=== PATIENT | female | born 1990 | race Caucasian/White ===

== ENCOUNTER 2017-09-19 09:30 | Day surgery (SDC) | payer MEDICAID, OTHER ==
--- NOTE | 2017-09-18 18:01 | PREOPHP ---
DATE OF ADMISSION: 09/19/2017 She is to be admitted for laparoscopic bilateral tubal ligation tomorrow, 09/19/2017. HISTORY OF PRESENT ILLNESS: This is a 26-year-old female, 4, para 3, who has requested ster ilization on the basis of multiparity. She has tried multiple different forms of contraception. Th e patient is now requesting a permanent procedure in the way of the tubal ligation. Alternatives, b enefits, risks, and possible complications were discussed at great length in the office as well as 1 % failure rate of this procedure. She was allowed to ask questions and all her questions were answe red to her satisfaction then she signed the appropriate surgical informed consent. PAST MEDICAL HISTORY: The patient denies any medical problems including cardiovascular disease, hyp ertension, diabetes, renal disease, liver disease, thyroid disease, or neurological problems. ALLERGIES: NO KNOWN ALLERGIES. OBSTETRICAL HISTORY: The patient had 4 pregnancies with 3 deliveries. REVIEW OF SYSTEMS: A 12-point review of systems is noncontributory. FAMILY HISTORY: Noncontributory. PHYSICAL EXAMINATION: GENERAL: Well-developed and nourished, in no distress, alert and oriented x3. Height 5 feet 4 inch es and weight of 157 pounds. VITAL SIGNS: Showed the temperature to be 98, blood pressure 110/70, respirations are 16 per minute , pulse is 70 per minute regular. HEENT: Within normal limits. The pupils are PERRLA. NECK: Supple. The thyroid is nonpalpable. There is no lymphadenopathy. LUNGS: Clear to percussion and auscultation. HEART: Revealed normal sinus rhythm without a murmur. ABDOMEN: Soft without organomegalies or hernias. PELVIC: Normal external genitalia. Cervix is normal. Bimanual exam: The uterus small and firm. There are no adnexal masses present. EXTREMITIES: Within normal limits. NEUROLOGIC: Also normal. IMPRESSION: Multiparity. The patient desires sterilization, is to be admitted for laparoscopic sekou ateral tubal ligation tomorrow 09/19/2017. Dictated By: CHASE DOMINGUEZ/SIRENA Conf#: [id number] DID#: [id number]
[~2017-09-19] VITALS: Ht 162.6 cm; Wt 68.0 kg
[2017-09-19] VITALS (12 sets, daily range): BP systolic 101–130; BP diastolic 51–81; PULSE 68–83; RESP 15–24; Ht 162.6 cm; Wt 68.0 kg
[2017-09-19] MEDS ORDERED: PREN-19 PO (10:15)
[2017-09-19] MEDS ORDERED: BUPIVACAINE 0.5%/EPI (SDV) 30 ML INJ ONE (12:06)
[2017-09-19] MEDS ORDERED: PROPOFOL 20 ML ONE (12:35)
[2017-09-19] MEDS ORDERED: ONDANSETRON 4 MG INJ ONE (12:35)
[2017-09-19] MEDS ORDERED: ROPIVACAINE 0.5 % 30 ML VIAL ONE (12:35)
[2017-09-19] MEDS ORDERED: MIDAZOLAM 1 MG/ML 2 ML INJ ONE (12:35)
[2017-09-19] MEDS ORDERED: METOCLOPRAMIDE 10 MG INJ ONE (12:35)
[2017-09-19] MEDS ORDERED: KETOROLAC 30 MG INJ ONE (12:46)
[2017-09-19] MEDS ORDERED: ONDANSETRON 4 MG INJ IV PRN ×2 (13:30→14:00)
[2017-09-19] MEDS ORDERED: morphine (1 MG/ML) 10ML SYRINGE IV PRN ×3 (13:30)
[2017-09-19] MEDS ORDERED: DIPHENHYDRAMINE 50 MG INJ IV PRN (13:30)
[2017-09-19] MEDS ORDERED: GLYCOPYRROLATE 0.4 MG INJ ONE (13:34)
[2017-09-19] MEDS ORDERED: NEOSTIGMINE 3 MG/3 ML SYRINGE ONE (13:34)
[2017-09-19] MEDS ORDERED: ROCURONIUM 50 MG INJ ONE (13:34)
--- NOTE | 2017-09-19 13:52 | SIPON ---
Date/Time of Note Date/Time of Note See dictated note DATE: 09/19/17 TIME: 13:50 Operative Report Preoperative Diagnosis Multiparity. Postoperative Diagnosis Same. Operation/Procedure Performed Laparoscopic BTL. Surgeon Dr.Carlos Adam Hunter MD assistant branch operations manager none Anesthesia: general Estimated blood loss: minimal Transfusion Required none Specimen none. Grafts/Implants none Complications none CHASE HUNTER MD Sep 19, 2017 13:52
[2017-09-19] MEDS ORDERED: EPHEDrine SULFATE 50 MG/5 ML SYG ONE (13:53)
--- NOTE | 2017-09-19 13:54 | PD.PPDC ---
RN L AND D Discharge Instruction Diagnosis Final Diagnosis: Multiparity. Condition Patient Condition: Good Diet Diet: Resume Regular Diet Activity/Restrictions Activity: Normal Activity May Shower Restrictions: No Exercising No Sexual Activity Nothing in the Vagina No [place] Wound/Drain Care Instructions Wound/Drain Care Instructions: Keep clean and dry Follow-up Follow-up with Physician: 2, Week/Weeks Return to clinic for DONATION WORKER Instructions: Fever greater than 101 Worsening abdominal pain Unable to tolerate diet Surgical Instructions: Incisional Drainage Incisional Redness (Shower and change Band Aids daily.) CHASE STILL MD Sep 19, 2017 13:54
[2017-09-19] MEDS ORDERED: LACTATED RINGER'S 1,000 ML IV SCH (13:57)
[2017-09-19] MEDS ORDERED: ACETAMINOPHEN 325 MG TAB PO PRN (14:00)
[2017-09-19] MEDS ORDERED: OXYCODONE/ACETAMINOPHEN (5/325) TAB PO PRN ×2 (14:00)
[2017-09-19] MEDS ORDERED: IBUPROFEN 600 MG TAB PO PRN (14:00)
[2017-09-19] MEDS ORDERED: morphine 2 MG INJ IV PRN (14:00)
--- NOTE | 2017-09-19 14:29 | OPR ---
DATE OF OPERATION: 09/19/2017 PREOPERATIVE DIAGNOSES: Multiparity. POSTOPERATIVE DIAGNOSIS: Multiparity. PROCEDURE: Laparoscopic bilateral tubal ligation. SURGEON: Chase Hnuter MD. ANESTHESIA: General by Dr. Brown. ESTIMATED BLOOD LOSS: Minimal. COMPLICATIONS: None. SPECIMENS: None. PROCEDURE AND FINDINGS: With the patient under general and regional anesthesia by Dr. Brown s he was laid on the table in the dorsal lithotomy position. Her abdomen was prepped with ChloraPrep and the perineum and vagina with Betadine and after 3 minutes, she was draped in the usual sterile f ashion for this procedure. A small 5 mm incision was done at the level of the umbilicus. Through t his incision, the Veress needle, while we were tenting up the anterior abdominal wall, was introduce d carefully in the abdomen. Once the tip of the needle was ascertained to be intraperitoneal by the hanging drop saline technique, it was connected to the CO2 insufflator. Good pneumoperitoneum was obtained. The needle was removed and a 5 mm trocar was passed in. Through this port, the 5 mm lapa roscope with the Endo camera was inserted. The patient was placed in Trendelenburg position. The p elvic organs looked normal. A second port was installed under direct vision in the hypogastric area with another 5 mm trocar. Through this port, a Kleppinger clamp was inserted, connected to the [employer] us device at 35 piedra of current. The right tube was picked up in its mid portion and burned throug h and through for 1.5 cm. The same was done on the contralateral side. There were no complications or bleeding. Pictures were taken for documentation. All the instruments were then removed from th e patient's abdomen as well as CO2. The incisions were closed with 4-0 Monocryl. Band-Aids were ap plied and patient was taken to recovery room with all vital signs stable. EBL was minimal. Needle, sponge and instrument count at the end of the procedure was correct twice. Dictated By: CHASE DOMINGUEZ/SIRENA Conf#: [id number] DID#: [id number]
== END 2017-09-19 15:15 | disposition home or self-care (01) ==
LOC: SDS 09:30
PROVIDERS: ATTEND Specialist
DX: Z30.2 Encounter for sterilization (principal)
CPT/HCPCS: 58670; 84703; J1885; J2250; J2270; J2405; J2710; J2765; J2795; Z7512; Z7610